=== PATIENT | female | born 1960 | race American Indian/Alaskan Native ===

== ENCOUNTER 2018-05-04 13:24 | Outpatient (CLI) | payer BC | END 2018-05-04 13:25 | disposition home or self-care (01) | LOC: BICRAD 13:24 → BICULT 13:25 | PROVIDERS: ATTEND Internal Medicine | DX: M79.604 Pain in right leg (principal); M79.605 Pain in left leg | CPT/HCPCS: 93970 ==

== ENCOUNTER 2018-08-12 10:42 | Outpatient (CLI) | payer BC ==
--- NOTE | 2018-08-12 13:27 | ULT ---
ULTRASOUND RIGHT BREAST: ULTRASOUND RIGHT BREAST: Indications: Assess area of pain with questionable palpable abnormality. No mammographic abnormality was seen in this region. FINDINGS: Ultrasound shows no sonographic abnormality. Recommend patient be returned to routine follow up. IMPRESSION: BIRADS 1 - negative. POS: ALEX
== END 2018-08-12 10:43 | disposition home or self-care (01) ==
LOC: BICULT 10:42
PROVIDERS: ATTEND Internal Medicine
DX: N64.4 Mastodynia (principal); R92.1 Mammographic calcification found on diagnostic imaging of breast
CPT/HCPCS: 77066; G0279